=== PATIENT | male | born 1955 | race Caucasian/White ===

== ENCOUNTER 2017-07-29 15:18 | Emergency (ER) | payer OTHER ==
[2017-07-29] MEDS ORDERED: Adacel (T-DAP) 0.5 ML VIAL ONE (15:31)
--- NOTE | 2017-07-29 21:58 | RAD ---
LEFT KNEE FOUR VIEWS 07/29/17 No major fracture was seen. There is considerable soft tissue swelling anterior to the knee. A small sliver of bone over the lower half of the patella anteriorly could be a small avulsion, though I am n ot convinced it is acute, since the bulk of the swelling is superior to the patella. There is no join t effusion. The joint space was unremarkable. IMPRESSION: No definite acute findings. There could be a tiny cortical sliver from the patella, but it may not be acute. POS: HOME
== END 2017-07-29 16:17 | disposition home or self-care (01) ==
LOC: BURERS 15:18
DX: S80.02XA Contusion of left knee, initial encounter (principal); S00.31XA Abrasion of nose, initial encounter; I10 Essential (primary) hypertension; F32.9 Major depressive disorder, single episode, unspecified; E11.9 Type 2 diabetes mellitus without complications; E78.5 Hyperlipidemia, unspecified; E66.9 Obesity, unspecified; W01.0XXA Fall on same level from slipping, tripping and stumbling without subsequent striking against object, initial encounter; Y93.02 Activity, running
CPT/HCPCS: 90471; 90715

== ENCOUNTER 2017-08-14 18:05 | Emergency (ER) | payer OTHER ==
--- NOTE | 2017-08-14 22:46 | RAD ---
LEFT KNEE FOUR VIEWS 08/14/17 Comparison is made with the 07/29 study. The amount of soft tissue swelling anterior to the patella and knee has increased in the interval. No joint effusion of significance was appreciated. No fracture was seen. A small bony density along the inferior aspect of the patella anteriorly, while possibly due to trauma, could just as easily be oss ification in the tendon. At any rate, the bulk of the soft tissue swelling is above this point. The j oint space was unremarkable. IMPRESSION: No adverse change in the appearance of the bony structures. Considerable worsening of the soft tissue swelling. Soft tissue infection is possible. POS: HOME
== END 2017-08-14 19:45 | disposition home or self-care (01) ==
LOC: BURERS 18:05
DX: S80.02XA Contusion of left knee, initial encounter (principal); S90.02XA Contusion of left ankle, initial encounter; E11.9 Type 2 diabetes mellitus without complications; E78.5 Hyperlipidemia, unspecified; I10 Essential (primary) hypertension; E66.9 Obesity, unspecified; F32.9 Major depressive disorder, single episode, unspecified; Z87.891 Personal history of nicotine dependence; W17.89XA Other fall from one level to another, initial encounter